=== PATIENT | male | born 1950 | race Caucasian/White ===

== ENCOUNTER 2023-11-17 09:02 | Emergency (ER) | payer OTHER ==
[2023-11-17 09:43] LABS: Absolute Lymphocytes (CBC) 0.6 K/uL (0.7-4.9); Absolute Monocytes 0.8 K/uL (0.1-1.3); Absolute Neutrophil 5.4 K/uL (1.8-8.0); Basophils % 0.4 % (0-1.3); Eosinophils % 0.1 % (0-4.4); Hematocrit 34.5 % (39.6-49.0); Hemoglobin 11.6 g/dL (13.6-17.9); Lymphocytes % 8.6 % (15.3-44.8); MCH 31.8 pg (27.0-35.0); MCHC 33.7 g/dL (32.0-36.0); MCV 94.3 fL (80-100); MPV 7.9 fL (7.6-11.3); Monocytes % 11.5 % (3.3-12.3); Neutrophils % 79.4 % (41.7-73.7); Platelets 105 thou/uL (152-406); RBC Red Blood Cell Count 3.66 M/uL (4.33-5.43); Red Cell Distribution Width 13.7 % (12.1-15.2)
[2023-11-17 09:45] LABS: PT Prothrombin Time 13.4 SECONDS (9.4-12.5); Protime INR 1.2
[2023-11-17 09:59] LABS: SARS-CoV-2 Antigen CONTROL BLUE LINE VIS/BG OK; SARS-CoV-2 Antigen Rapid Res Negative (Negative)
[2023-11-17 10:01] LABS: Albumin 3.1 g/dL (3.4-5.0); Albumin/Globulin Ratio 0.9 (1.1-1.8); Bilirubin Direct 0.2 mg/dL (0-0.2); Bilirubin Indirect, Calculated 0.3 mg/dL (0.2-0.8); Bilirubin Total 0.5 mg/dL (0.2-1.0); Globulin 3.4 g/dL (2.3-3.5); Magnesium 1.9 mg/dL (1.6-2.4); Protein, Total 6.5 g/dL (6.4-8.2); Troponin High Sensitivity 27.5 pg/mL (<58.9)
--- NOTE | 2023-11-17 10:16 | RAD REPORT ---
EXAM DESCRIPTION: CT - Head Brain Wo Cont - 11/17/2023 10:04 am CLINICAL HISTORY: DIZZINESS Headache, drowsiness COMPARISON: No comparisons TECHNIQUE: All CT scans are performed using dose optimization technique as appropriate and may inclu de automated exposure control or mA/KV adjustment according to patient size. FINDINGS: No intracranial hemorrhage, hydrocephalus or extra-axial fluid collection.No areas of brai n edema or evidence of midline shift. The paranasal sinuses and mastoids are clear. The calvarium is intact. IMPRESSION: No acute intracranial abnormality.
--- NOTE | 2023-11-17 10:41 | RAD REPORT ---
EXAM DESCRIPTION: RAD - Chest Single View - 11/17/2023 10:35 am CLINICAL HISTORY: near syncope Chest pain. COMPARISON: No comparisons FINDINGS: Portable technique limits examination quality. The lungs are grossly clear. The heart is normal in size. No displaced fractures. IMPRESSION: No acute intrathoracic process suspected.
--- NOTE | 2023-11-17 10:45 | EDPHYS ---
Physician Documentation [facility] Name: Cuong Farnsworth Age: 73 yrs Sex: Male : 1950 Arrival Date: 11/17/2023 Time: 09:02 Bed 17 Private MD: ED Physician Carla Mariee HPI: 11/16 09:53 This 73 yrs old Male presents to ER via Unassigned with complaints of Dizziness. sp3 09:53 73-year-old male with history of diabetes, hypertension, hyperlipidemia presents to the 3 ED with chief complaint near syncope that occurred just prior to arrival while at home. EMS found patient with systolic blood pressure 80 and administer normal saline to which she has responded and now has normal vital signs. Patient has no complaints whatsoever currently. He denies any current or prodrome symptoms including headache, neck pain, chest pain, shortness of breath, abdominal pain, vomiting, diarrhea, rash, fever, or any other signs or symptoms on ROS at this time. 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 He has been active and in no significant poor health. He is scheduled to have an aortic valve replacement over the next month. He is not currently on any antiplatelet or anticoagulant's. Review of systems otherwise negative.. 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 - Infectious Disease History:: Denies. - Social history:: Smoking status: Patient denies any tobacco usage or history of. ROS: 09:54 Constitutional: Negative for fever, chills, and weight loss, Eyes: Negative for injury, sp3 pain, redness, and discharge, Neck: Negative for injury, pain, and swelling, Respiratory: Negative for shortness of breath, cough, wheezing, and pleuritic chest pain, Abdomen/GI: Negative for abdominal pain, nausea, vomiting, diarrhea, and constipation, Back: Negative for injury and pain, MS/Extremity: Negative for injury and deformity, Skin: Negative for injury, rash, and discoloration, Neuro: Negative for headache, weakness, numbness, tingling, and seizure, Psych: Negative for depression, anxiety, suicide ideation, homicidal ideation, and hallucinations, Allergy/Immunology: Negative for hives, rash, and allergies, Endocrine: Negative for neck swelling, polydipsia, polyuria, polyphagia, and marked weight changes, Hematologic/Lymphatic: Negative for swollen nodes, abnormal bleeding, and unusual bruising, 09:54 All other systems are negative, Exam: 09:55 Constitutional: This is a well developed, well nourished patient who is awake, alert, sp3 and in no acute distress. Head/Face: Normocephalic, atraumatic. Eyes: Pupils equal round and reactive to light, extra-ocular motions intact. Lids and lashes normal. Conjunctiva and sclera are non-icteric and not injected. Cornea within normal limits. Periorbital areas with no swelling, redness, or edema. Neck: Trachea midline, no thyromegaly or masses palpated, and no cervical lymphadenopathy. Supple, full range of motion without nuchal rigidity, or vertebral point tenderness. No Meningismus. Chest/axilla: Normal chest wall appearance and motion. Nontender with no deformity. No lesions are appreciated. Cardiovascular: Regular rate and rhythm with a normal S1 and S2. No gallops, murmurs, or rubs. Normal PMI, no JVD. No pulse deficits. Respiratory: Lungs have equal breath sounds bilaterally, clear to auscultation and percussion. No rales, rhonchi or wheezes noted. No increased work of breathing, no retractions or nasal flaring. Abdomen/GI: Soft, non-tender, with normal bowel sounds. No distension or tympany. No guarding or rebound. No evidence of tenderness throughout. Back: No spinal tenderness. No costovertebral tenderness. Full range of motion. Skin: Warm, dry with normal turgor. Normal color with no rashes, no lesions, and no evidence of cellulitis. MS/ Extremity: Pulses equal, no cyanosis. Neurovascular intact. Full, normal range of motion. Neuro: Awake and alert, GCS 15, oriented to person, place, time, and situation. Cranial nerves II-XII grossly intact. Motor strength 5/5 in all extremities. Sensory grossly intact. Cerebellar exam normal. Normal gait. Psych: Awake, alert, with orientation to person, place and time. Behavior, mood, and affect are within normal limits. 09:55 ECG was reviewed by the Attending Physician. EKG demonstrates normal sinus rhythm at 80 bpm with normal intervals, normal QRS with R waves noted precordially and normal ST's ST segments without evidence of acute ischemia. Vital Signs: 09:07 BP 128 / 64; Pulse 80; Resp 18; Temp 98; Pulse Ox 97% on R/A; db 09:53 BP 119 / 64 Supine; Pulse 81; db 09:55 BP 120 / 62 Sitting; Pulse 81; db 09:57 BP 101 / 57 Standing; Pulse 93; db 11:00 BP 136 / 80; Pulse 91; Resp 18; Pulse Ox 99% on R/A; db MDM: 09:06 Patient medically screened. sp3 09:56 Data reviewed: vital signs, nurses notes, lab test result(s), EKG, radiologic studies. sp3 ED course: . 09:56 ED course: 73-year-old male with PMH above with resolved near syncope with IV fluids. sp3 Patient is in no distress whatsoever. Differential diagnosis includes vasovagal episode, and to a lesser degree cardiovascular event, electrolyte abnormality or other intracranial process. Workup will include CT scan of the head, laboratory values, EKG, lactate due to the hypotension and general supportive care. Patient desires to be discharged if workup is negative and I concur with this plan.. 10:43 ED course: Patient states CKD is known and BNP at 800 mildly elevated. Given patient's sp3 aortic valve history, this is likely chronic. Patient stable and in no acute distress with normal orthostatics. We will safely discharge patient home at this time with follow-up with his existing care team.. 10:50 ED course: Copy of patient's labs and CT and x-ray given to him. 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 He will follow-up there.. 11/16 09:08 Order name: Basic Metabolic Panel; Complete Time: 10:42 sp3 11/16 09:08 Order name: CBC with Diff; Complete Time: 10:42 sp3 11/16 09:08 Order name: LFT's; Complete Time: 10:42 sp3 11/16 09:08 Order name: Magnesium; Complete Time: 10:42 sp3 11/16 09:08 Order name: NT PRO-BNP; Complete Time: 10:42 sp3 11/16 09:08 Order name: PT-INR; Complete Time: 10:42 sp3 11/16 09:08 Order name: Troponin HS; Complete Time: 10:42 sp3 11/16 09:08 Order name: Lactate w/ 2H reflex if indic.; Complete Time: 10:42 sp3 11/16 09:08 Order name: Flu; Complete Time: 10:42 sp3 11/16 09:08 Order name: SARS RAPID; Complete Time: 10:42 sp3 11/16 09:09 Order name: UAM sp3 11/16 09:08 Order name: XRAY Chest (1 view); Complete Time: 10:42 sp3 11/16 09:08 Order name: CT Head Brain wo Cont; Complete Time: 10:42 sp3 11/16 09:08 Order name: EKG; Complete Time: 09:09 sp3 11/16 09:08 Order name: Cardiac monitoring; Complete Time: 09:39 sp3 11/16 09:08 Order name: EKG - Nurse/Tech; Complete Time: 09:39 sp3 11/16 09:08 Order name: IV Saline Lock; Complete Time: 09:39 sp3 11/16 09:08 Order name: Labs collected and sent; Complete Time: 09:39 sp3 11/16 09:08 Order name: O2 Per Protocol; Complete Time: 09:39 sp3 11/16 09:08 Order name: O2 Sat Monitoring; Complete Time: 09:39 sp3 11/16 09:08 Order name: Orthostatics; Complete Time: 10:17 sp3 Administered Medications: No medications were administered Disposition Summary: 11/17/23 10:44 Discharge Ordered Notes: Location: Home sp3 Condition: Stable sp3 Diagnosis - Near syncope, dizziness sp3 Followup: sp3 - With: Private Physician - When: Upon discharge from the Emergency Department - Reason: Continuance of care Discharge Instructions: - Discharge Summary Sheet sp3 - Near-Syncope sp3 Forms: - Medication Reconciliation Form sp3 - Antibiotic Education sp3 - Prescription Opioid Use sp3 - Patient Portal Instructions sp3 - Leadership Thank You Letter sp3 Signatures: Dispatcher [employer] Carla Peterson MD MD sp3 Abiola Mccarty RN RN db Corrections: (The following items were deleted from the chart) 09:09 09:09 Head Brain Wo Cont+CT.RAD.BRZ ordered. EDMS EDMS
--- NOTE | 2023-11-17 10:45 | ER ---
Nurse's Notes [facility] Name: Cuong Farnsworth Age: 73 yrs Sex: Male : 1950 Arrival Date: 11/17/2023 Time: 09:02 Bed 17 Private MD: Diagnosis: Near syncope, dizziness Presentation: 11/16 09:04 Chief complaint: EMS states: PT WAS AT WORK COMPLAINED OF DIZZINESS AND LETHARGY BP db 81/48 FOR EMS. TAKES BP MEDICATIONS AND TOOK THIS AM. PT HAS HX OF MULTIPLE STENTS. LAST STENT THIS YEAR OCTOBER 2023. Initial Sepsis Screen: Does the patient meet any 2 criteria? No. Patient's initial sepsis screen is negative. Does the patient have a suspected source of infection? No. Patient's initial sepsis screen is negative. Risk Assessment: Do you want to hurt yourself or someone else? Patient reports no desire to harm self or others. Onset of symptoms was November 17, 2023. Care prior to arrival: Medication(s) given: Normal saline infusion, 300 ML IV initiated. 20 GA, in the right antecubital area, Glucose check: 98. 11:27 Coronavirus screen: Client denies travel out of the [place] in the last 14 days. At this db time, the client does not indicate any symptoms associated with coronavirus-19. Ebola Screen: Patient negative for fever greater than or equal to 101.5 degrees Fahrenheit, and additional compatible Ebola Virus Disease symptoms Patient denies exposure to infectious person. Patient denies travel to an Ebola-affected area in the 21 days before illness onset. No symptoms or risks identified at this time. 11:27 Method Of Arrival: EMS: [facility] db 11:27 Acuity: TODD 2 db Triage Assessment: 09:09 General: Appears in no apparent distress. comfortable, Behavior is calm, cooperative, db appropriate for age. Pain: Denies pain. Neuro: Level of Consciousness is awake, alert, obeys commands, Oriented to person, place, time, situation. Musculoskeletal: Amputation of RIGHT BKA. 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 - Infectious Disease History:: Denies. - Social history:: Smoking status: Patient denies any tobacco usage or history of. Screenin:38 [facility] ED Fall Risk Assessment (Adult) History of falling in the last 3 months, db including since admission No falls in past 3 months (0 pts) Confusion or Disorientation No (0 pts) Intoxicated or Sedated No (0 pts) Impaired Gait Yes (1 pt) Mobility Assist Device Used Yes (1 pt) Altered Elimination No (0 pt) Score/Fall Risk Level 0 - 2 = Low Risk Oriented to surroundings, Maintained a safe environment. Abuse screen: Denies threats or abuse. Denies injuries from another. Nutritional screening: No deficits noted. Tuberculosis screening: No symptoms or risk factors identified. Assessment: 09:13 Reassessment: SEE TRIAGE FOR INITIAL ASSESSMENT. 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 db 11:26 Reassessment: Patient appears in no apparent distress at this time. Patient and/or db family updated on plan of care and expected duration. Pain level reassessed. Patient is alert, oriented x 3, equal unlabored respirations, skin warm/dry/pink. Patient states feeling better. Patient states symptoms have improved. Vital Signs: 09:07 BP 128 / 64; Pulse 80; Resp 18; Temp 98; Pulse Ox 97% on R/A; db 09:53 BP 119 / 64 Supine; Pulse 81; db 09:55 BP 120 / 62 Sitting; Pulse 81; db 09:57 BP 101 / 57 Standing; Pulse 93; db 11:00 BP 136 / 80; Pulse 91; Resp 18; Pulse Ox 99% on R/A; db ED Course: 09:03 Patient arrived in ED. db 09:06 Carla Mariee MD is Attending Physician. sp3 09:07 Arm band placed on Patient placed in an exam room. db 09:13 Maintain EMS IV. Dressing intact. Good blood return noted. Site clean \T\ dry. Gauge \T\ db site: 20 G RFA. 09:14 Patient has correct armband on for positive identification. Bed in low position. Call db light in reach. Side rails up X 1. Client placed on continuous cardiac and pulse oximetry monitoring. NIBP monitoring applied. amusement machine mechanic on. Pulse ox on. NIBP on. 09:32 Initial lab(s) drawn, by me, sent to lab. EKG done, by ED staff, reviewed by Carla Mariee MD. 09:[address] db 09:38 Abiola Mccarty, RN is Primary Nurse. db 10:06 CT Head Brain wo Cont In Process Unspecified. EDMS 10:37 XRAY Chest (1 view) In Process Unspecified. EDMS 11:26 Provided Education on: DISCHARGE AND FOLLOWUP. db 11:26 No provider procedures requiring assistance completed. IV discontinued, intact, db bleeding controlled, No redness/swelling at site. 11:27 Triage completed. db Administered Medications: No medications were administered Medication: 09:39 VIS not applicable for this client. db Outcome: 10:44 Discharge ordered by . sp3 11:26 Discharged to home ambulatory, with friend, jovanna 11:26 Condition: stable 11:26 Discharge instructions given to patient, Instructed on discharge instructions, follow up and referral plans. 11:27 Patient left the ED. db Signatures: Dispatcher [employer] Carla Peterson MD MD sp3 Abiola Mccarty, RN RN db
[2023-11-17 11:31] LABS: Specific Gravity 1.019 (1.005-1.030); Sqamous Epithelial <5 /HPF (None Seen); Urine Bacteria None Seen /HPF (<20); Urine Bilirubin NEGATIVE (Negative); Urine Blood Negative (Negative); Urine Clarity Extremely Turbid (Clear); Urine Color Yellow (Yellow); Urine Culture Reflex Order NOT NEEDED; Urine Glucose NEGATIVE (Negative); Urine Ketones NEGATIVE (Negative); Urine Micro Reflex YN NO BILL MICROSCOPIC; Urine Mucus 1+ /HPF (None Seen); Urine Nitrite NEGATIVE (Negative); Urine Protein 1+ (Negative); Urine RBC None Seen /HPF (None Seen); Urine Urobilinogen Normal (Normal); Urine WBC <5 /HPF (<5); Urine pH 5.5 (5.0-7.0)
[2023-11-17 11:37] VITALS: BP 136/80; TEMP 98; O2SAT 99
--- NOTE | 2023-11-18 16:57 | EKG ---
Test Date: 2023-11-17 Test Time: 09:13:59 Inspector Dials: CAMILA MEASUREMENT RESULTS: Intervals: Rate: 79 CT: 166 QRSD: 100 QT: 362 QTc: 415 [place]: P: -4 CT: 166 QRS: 39 T: 64 INTERPRETIVE STATEMENTS: Normal sinus rhythm Normal ECG No previous ECG available for comparison Electronically Signed On 11-18-23 16:53:23 CDT by Dennis Lange
== END 2023-11-17 11:27 | disposition home or self-care (01) ==
LOC: ER 09:02
DX: R55 Syncope and collapse (principal); R42 Dizziness and giddiness; Z11.52 Encounter for screening for COVID-19; I10 Essential (primary) hypertension; E11.9 Type 2 diabetes mellitus without complications; E78.5 Hyperlipidemia, unspecified
CPT/HCPCS: 36415; 70450; 71045; 80048; 80076; 81001; 83605; 83735; 83880; 84484; 85025; 85610; 87804; 87811; 93005; 99285